=== PATIENT | male | born 1995 | race Caucasian/White ===

== ENCOUNTER → 2017-09-23 | Outpatient (CLI) | payer OTHER ==
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
== END ==
LOC: RAD 11:49
PROVIDERS: ATTEND Nurse Practitioner Community Health
DX: M54.12 Radiculopathy, cervical region (principal); V89.2XXA Person injured in unspecified motor-vehicle accident, traffic, initial encounter
CPT/HCPCS: 72141

== ENCOUNTER 2017-11-14 08:45 | Outpatient (RCR) | payer OTHER | END 2017-11-16 | disposition home or self-care (01) | PROVIDERS: ATTEND Nurse Practitioner Community Health | DX: M54.2 Cervicalgia (principal) ==

== ENCOUNTER 2017-12-24 08:02 | Outpatient (RCR) | payer OTHER | END 2018-01-30 10:57 | disposition home or self-care (01) | PROVIDERS: ATTEND Nurse Practitioner Community Health | DX: M54.2 Cervicalgia (principal); V43.52XD Car driver injured in collision with other type car in traffic accident, subsequent encounter ==